=== PATIENT | male | born 1985 | race Caucasian/White ===

== ENCOUNTER 2016-05-01 16:37 | Emergency (ER) | payer OTHER | END 2016-05-01 19:53 | disposition home or self-care (01) | LOC: ER 16:37 | DX: J06.9 Acute upper respiratory infection, unspecified (principal); J02.9 Acute pharyngitis, unspecified; G89.29 Other chronic pain; M54.9 Dorsalgia, unspecified; Q05.9 Spina bifida, unspecified; F17.220 Nicotine dependence, chewing tobacco, uncomplicated; Z79.899 Other long term (current) drug therapy | CPT/HCPCS: 72128; 72131; 87070; 87400; 87880; 99283-25 ==

== ENCOUNTER 2016-06-24 10:13 | Emergency (ER) | payer OTHER ==
[2016-06-24 10:45] LABS: BASO % 0.5 % (0.2-1.2); EOS # 0.5 10_X3_uL (0.0-0.5); EOS % 7.5 % (0.8-7.0); GRAN # 3.5 10_X3_uL (1.8-5.4); GRAN % 53.2 % (34.0-67.9); HEMOGLOBIN 15.3 g/dL (13.7-17.5); LYMPH # 2.1 10_X3_uL (1.3-3.6); LYMPH % 31.6 % (21.8-53.1); MEAN CORPUSCULAR HEMOGLOBIN 29.5 pg (27.0-33.0); MEAN CORPUSCULAR VOLUME 86.7 fL (79-92); MEAN PLATELET VOLUME 10.7 fl (7.5-11.5); MONO # 0.5 10_X3_uL (0.3-0.8); MONO % 7.2 % (5.3-12.2); PLATELET COUNT 198 x10_3/uL (163-337); RED BLOOD COUNT 5.19 x10_6/uL (4.6-6.1); RED CELL DISTRIBUTION WIDTH 13.7 % (11.6-14.4); WHITE BLOOD COUNT 6.6 x10_3/uL (4.2-9.1)
[2016-06-24 11:00] LABS: ALBUMIN 4.2 gm/dL (3.4-5.0); ALKALINE PHOSPHATASE 80 U/L (50-136); ALT/SGPT 20 U/L (7.53-40.17); AST/SGOT 18 U/L (6.66-35.34); BILIRUBIN,TOTAL 0.25 mg/dL (0.0-1.0); BLOOD UREA NITROGEN 10 mg/dL (7-18); CALCIUM 8.5 mg/dL (8.7-10.7); CARBON DIOXIDE 24 mmol/L (21-32); CREATINE KINASE 169 U/L (35-232); CREATININE 0.8 mg/dL (0.6-1.3); GLUCOSE,RANDOM 92 mg/dL (70-99); POTASSIUM 3.7 mmol/L (3.5-5.1); SODIUM 141 mmol/L (136-145); TOTAL PROTEIN 6.6 gm/dL (6.4-8.2)
== END 2016-06-24 12:47 | disposition home or self-care (01) ==
LOC: ER 10:13
PROVIDERS: Emergency Medicine
DX: R07.89 Other chest pain (principal); F41.9 Anxiety disorder, unspecified; M54.2 Cervicalgia; M54.9 Dorsalgia, unspecified; Z82.49 Family history of ischemic heart disease and other diseases of the circulatory system
CPT/HCPCS: 36415; 71020; 80053; 80307; 82550; 82553; 85025; 85379; 93005; 99070; 99285-25